=== PATIENT | male | born 1975 | race Caucasian/White ===

== ENCOUNTER → 2018-10-17 | Outpatient (CLI) | payer OTHER ==
--- NOTE | 2018-10-18 10:00 | PCVCIMAG ---
APPROVED REPORT Study performed: 10/17/2018 15:07:52 Exam: Stress Echocardiogram Indication: abn ekg, abnormal EKG stress test, obesity Patient Location: Echo lab Stress Nurse: Haydee Rosario RN Status: routine Ht: 6 ft 0 in HR: 55 bpm BP: 124/86 mmHg Rhythm: Bradycardia- RBBB Procedure The patient underwent an Exercise Stress Test using the Chano Protocol. Blood pressure, heart rate, and EKG were monitored. An Echocardiogram was performed by alternative energy technician in four stages in quad fashion. At peak stress, four selected images were obtained and placed side by side with resting images for comparison. Stress Test Details Stress Test: Exercise stress testing was performed using a Chano protocol. HR Resting HR: 55 bpmMax Heart Rate (APMHR): 179 bpm Max HR Achieved: 181 bpmTarget HR (85% APMHR): 152 bpm % of APMHR: 101 Recovery HR: 91 bpm HR response to stress: Normal HR response to stress BP Resting BP: 124/86 mmHg Max BP: 178/84 mmHg Recovery BP: 152/84 mmHg BP response to stress: Normal blood pressure response to stress. ECG Resting ECG: Sinus bradycardia, RBBB Stress ECG: Sinus Rhythm ST Change: Normal Arrhythmia: RBBB, rare isolated PVC Recovery ECG: Sinus Rhythm, RBBB Recovery ST Change: Normal Recovery Arrhythmia: None Clinical Reason for Termination: Maximal effort Stress Symptoms: Dyspnea Exercise duration: 11 min sec Highest Stage Achieved: Stage 4: 4.2 mph at 16% grade. Exercise capacity: 13.7 METs Overall Exercise Capacity for Age: Good Scale: Sedentary Angina Score: None Stress ECG Conclusion 1. Subjectively Negative for ischemia 2. Electrocardiographically negative for ischemia 3. Satisfactory functional capacity Pre-Stress Echo The resting Echocardiogram showed normal left ventricular contractility with an estimated Ejection Fraction of about >55%. Normal wall motion in all segments on baseline images. Post-Stress Echo The stress Echocardiogram showed normal left ventricular contractility with an estimated Ejection Fraction of about 65%. Normal augmentation of wall motion in all segments on post stress images. Clinical No clinical or ECG evidence for ischemia. Conclusion Clinical Response: Non-ischemic Exercise Capacity: Average Stress ECG Response: Non-ischemic Stress Echo Images: Non-ischemic The left ventricle is normal in size and wall thickness in both the rest and stress images. Mild aortic insufficiency. Other Information Study Quality: Adequate <Conclusion> The left ventricle is normal in size and wall thickness in both the rest and stress images. Mild aortic insufficiency.
== END | disposition home or self-care (01) ==
LOC: PCVCIMAG 15:20
PROVIDERS: ATTEND Internal Medicine
DX: R94.31 Abnormal electrocardiogram [ECG] [EKG] (principal); E66.9 Obesity, unspecified
CPT/HCPCS: 93325; 93351